=== PATIENT | male | born 1990 | race Caucasian/White ===

== ENCOUNTER 2020-09-22 18:20 | Emergency (ER) | payer OTHER ==
[~2020-09-22] VITALS: Ht 172.7 cm; Wt 75.0 kg
[2020-09-22 20:45] VITALS: BP 139/72
== END 2020-09-22 21:00 | disposition home or self-care (01) ==
LOC: EMS 18:20
DX: N28.1 Cyst of kidney, acquired (principal); F17.210 Nicotine dependence, cigarettes, uncomplicated; F11.90 Opioid use, unspecified, uncomplicated
CPT/HCPCS: 74176; Z7502